=== PATIENT | female | born 1950 | race Caucasian/White ===

== ENCOUNTER 2016-09-28 18:13 | Emergency (ER) | payer OTHER ==
[~2016-09-28] VITALS: Ht 142.2 cm; Wt 68.0 kg
[2016-09-28 18:35] VITALS: BP 126/86
--- NOTE | 2016-09-28 19:08 | NUR ---
Patient BIBA to bed 3 at this time.
--- NOTE | 2016-09-28 19:15 | NUR ---
65 YO FEMALE [place] [facility] [place] BRUISING AND LACERATION TO MOUTH AND NOSE. AWAKE AND ALERT BLEEDING CONTROLLED ICE APPLIED AND AWAITING BED ASSIGNMENT. Addendum: 09/28/16 at 2002 by COURTNEY 65 YO FEMALE BIB EMS [place] [facility] [place] BRUISING AND LACERATION TO MOUTH AND NOSE. AWAKE AND ALERT BLEEDING CONTROLLED ICE APPLIED. PT STATES SHE AMBULATED WITH NO ISSUES AT [facility] [place], BUT SLIPPED AND FELL. PT DENIES ANY N/V/D, SOB OR CP AT THE MOMENT. BREATHING IS UNLABORED. PT STATES 8/10 PAIN.
--- NOTE | 2016-09-28 19:38 | NUR ---
Dr. Tilley evaluating patient at bedside.
[2016-09-28] MEDS ORDERED: KETOROLAC 60 MG/2 ML VIAL IM ONE (19:45)
--- NOTE | 2016-09-28 20:06 | NUR ---
PT LEAVING FOR XRAY VIA [facility] ACCOMPANIED BY PHOTOGRAPHY SALES ASSOCIATE
--- NOTE | 2016-09-28 20:26 | NUR ---
PT RETURN FROM XRAY
[2016-09-28 21:06] VITALS: BP 119/82
--- NOTE | 2016-09-28 21:06 | NUR ---
Note undone in EDM - 09/28/16 at 2125 by COURTNEY Patient discharged with v/s stable. Written and verbal after care instructions given and explained. Patient alert, oriented and verbalized understanding of instructions. Ambulatory with to half-way. All questions addressed prior to discharge. ID band removed. Patient advised to follow up with PMD. Rx of NORCO 5/325 AND MOTRIN 600MG given. Patient educated on indication of medication including possible reaction and side effects. Opportunity to ask questions provided and answered.
--- NOTE | 2016-09-28 21:22 | NUR ---
SPOKE TO LUIS AT [facility] [place]; PT WILL BE TRANSPORTED VIA [facility]. ETA 1 HOUR AND HALF
--- NOTE | 2016-09-28 21:22 | NUR ---
Patient discharged with v/s stable. Written and verbal after care instructions given and explained. Patient alert, oriented and verbalized understanding of instructions. Ambulatory with to correction. All questions addressed prior to discharge. ID band removed. Patient advised to follow up with PMD. Rx of NORCO 5/325 AND MOTRIN 600MG given. Patient educated on indication of medication including possible reaction and side effects. Opportunity to ask questions provided and answered.
== END 2016-09-28 21:22 | disposition home or self-care (01) ==
LOC: MED 18:13
DX: S01.511A Laceration without foreign body of lip, initial encounter (principal); S20.212A Contusion of left front wall of thorax, initial encounter; E11.9 Type 2 diabetes mellitus without complications; Z85.038 Personal history of other malignant neoplasm of large intestine; W18.39XA Other fall on same level, initial encounter; Y93.89 Activity, other specified; Y92.89 Other specified places as the place of occurrence of the external cause; Y99.8 Other external cause status
CPT/HCPCS: 71101; 93005; 96372; 99284; J1885